=== PATIENT | male | born 1950 | race Caucasian/White ===

== ENCOUNTER 2019-04-26 12:30 | Outpatient (RCR) | payer MEDICARE, SELFPAY ==
--- NOTE | 2019-03-28 14:58 | PTOPEVAL ---
Thank you for referring this patient to [facility]. Please review, sign, date and return this plan of care TEJ. Pt referred to therapy due to left knee pain and instability. He requires additional skilled therapy 2x/wk x 5 wk to address noted impairments, improve pain and function and achieve therapy goals. I agree with and certify that the following plan of care is medically necessary. Referring Physician Date Admitting Provider: Attending Provider: Dimitris Mabry MD Referring Provider: *PT Outpatient Evaluation Start: 03/28/19 13:53 Freq: Status: Active Protocol: Document 03/28/19 13:55 CARLOS MANUEL (Rec: 03/28/19 14:56 CARLOS MANUEL [email or web address]) Therapy Assessment Status Assessment Status Assessment Status Evaluation Outpatient Past Medical History Musculoskeletal History Hx Orthopedic Surgery Yes: left arthroscopic knee surgery and right 2017 Evaluation Information Problem Diagnosis ACL laxity Onset 02/13/19 Subjective Information Pt was riding his regular bike Query Text:As Reported By Patient/ and climbing in/out of truck Family when he woke with increased pain. He rides his bike 2-3x/ wk depending on weather. He will usually start at 4-5 miles and slowly progress with the season. He had a previous knee arthroscopic surgery 1989. The MD drained the knee and made referral to therapy. He reports limitations with steps especially with descending steps. Reports pain with squating. Denies pain/stiffness in the morning, difficulty getting out of chair. He does feel like the legs are weak. He want to make sure his legs are strong for the cruise next month. Prior Level of Function Activity Level (Last 3 Months) Occupation retired Hand Dominance Right Activity of Daily Living Ability Independent Indoor/Home Mobility Independent Community Mobility Independent Stairs Ability Independent Cooking Yes Shopping Yes Driving Yes Home Setting Home Type House,Multiple Levels Environmental Barriers Railing, Ascend Left,Stairs,
--- NOTE | 2019-04-26 13:14 | PTOPEVAL ---
Thank you for referring this patient to [facility]. Please review, sign, date and return this plan of care TEJ. Pt has received 8 PT visits to address knee pain and laxity. He demonstrates progress with pain and functional mobility. He has achieved all his therapy goals, except 1 goal for single leg stance. DC skilled therapy at this time. I agree with and certify that the following plan of care is medically necessary. Referring Physician Date Attending Provider: Dimitris Mabry MD Referring Provider: *PT Outpatient Re-Evaluation Start: 03/28/19 13:53 Freq: Status: Active Protocol: Document 04/26/19 12:31 CAP (Rec: 04/26/19 13:10 CAP [email or web address]) Therapy Assessment Status Assessment Status Assessment Status Discharge Outpatient Past Medical History Musculoskeletal History Hx Orthopedic Surgery Yes: left arthroscopic knee surgery and right 2017 Evaluation Information Problem Diagnosis ACL laxity Onset 02/13/19 Additional Evaluation Detail Pt was riding his regular bike and climbing in/out of truck when he woke with increased pain. He rides his bike 2-3x/ wk depending on weather. He will usually start at 4-5 miles and slowly progress with the season. He reports limitations with steps especially with descending steps. Reports pain with squating. Denies pain/stiffness in the morning, difficulty getting out of chair. He does feel like the legs are weak. Subjective Information Reports his knee pain is Query Text:As Reported By Patient/ better. He was able to ride Family his bike without increased pain. He rode for 30'. Denies problems with climbing ladder, negotiating steps. Slight difficulty with getting down into squat position. Reports his legs feel stronger . Reports increased knee pain when he wakes in the am, but improved with motion. Pain Assessment Timing of Pain Assessment Timing of Pain Assessment Pre-Treatment Pain Scale Pain Scale Used Numeric (1 - 10) Self Report Pain Assessment Left Knee(s) Reported Pain Level
== END 2019-04-26 14:14 | disposition home or self-care (01) ==
LOC: ANHPT 12:30
PROVIDERS: Visit Provider Orthopaedic Surgery
DX: M25.562 Pain in left knee (principal)
CPT/HCPCS: 97110; 97161; 97530